=== PATIENT | female | born 1940 | race Hispanic/Latino ===

== ENCOUNTER 2017-11-06 06:41 | Day surgery (SDC) | payer MEDICARE ==
[~2017-11-06] VITALS: Ht 162.6 cm; Wt 81.6 kg
[2017-11-06] VITALS (13 sets, daily range): BP systolic 110–129; BP diastolic 46–77
[~2017-11-06 06:41] MED LIST: ACET-2743 PO; AEC81 PO; BISO10TA PO; CARV6.2579 PO; CHOL200012 PO; DOCU100C33 PO; DONE10TA36 PO; FERR-63 PO; FURO20TA4 PO; HYDR-4154 PO; INSLAN SQ; LEVO200T10 PO; LINE600T6 PO; LISI10TA7 PO; LOSA50TA37 PO; LOVA10TA2 PO; MAGN400T40 PO; MERO1PIG IV; MULT-40 PO; NITR0.4T50 SL; NYST30C TP; OMEG1CAP12 PO; OMEP40CA37 PO; ONDA4TAB10 PO; RANO500T2 PO; SERT25TA5 PO; SODIUM CHLORIDE 0.9% 1000ML 1,000 ML IV ONE; [UNRECOGNIZED DRUG - CODE] IV
[2017-11-06] MEDS ORDERED: PROPOFOL 10 MG/ML 20ML VIAL IV ONE (08:25)
[2017-11-06] MEDS ORDERED: EPHEDRINE SULFATE 50 MG/ML AMPULE ONE (08:37)
[2017-11-06 09:05] LABS: % IRON SATURATION 15.6 % (22-44)
[2017-11-07 12:20] LABS: HEPATITIS A ANTIBODY IGM Negative (Negative); HEPATITIS B CORE IGM Negative (Negative); HEPATITIS Bs ANTIGEN SCREEN P Negative (Negative)
[2017-11-10 13:19] LABS: ALPHA-1-ANTITRYPSIN 149 mg/dL (90-200)
== END 2017-11-06 10:27 ==
LOC: ENDO 06:41 → DAH 06:41 → ENDO 10:27
PROVIDERS: ATTEND Internal Medicine Gastroenterology
DX: K74.60 Unspecified cirrhosis of liver (principal); I85.10 Secondary esophageal varices without bleeding; K76.6 Portal hypertension; K31.89 Other diseases of stomach and duodenum; J44.9 Chronic obstructive pulmonary disease, unspecified; E11.22 Type 2 diabetes mellitus with diabetic chronic kidney disease; I12.9 Hypertensive chronic kidney disease with stage 1 through stage 4 chronic kidney disease, or unspecified chronic kidney disease; N18.9 Chronic kidney disease, unspecified; E03.9 Hypothyroidism, unspecified; E78.5 Hyperlipidemia, unspecified; F03.90 Unspecified dementia, unspecified severity, without behavioral disturbance, psychotic disturbance, mood disturbance, and anxiety; F32.9 Major depressive disorder, single episode, unspecified
CPT/HCPCS: 36415; 43235; 80074; 82103; 82104; 82105; 82728; 82948 ×2; 83540; 83550; 84165; 86038; 86255; 93005; A4606; J2704; J3490; J7030